=== PATIENT | male | born 1950 | race Caucasian/White ===

== ENCOUNTER 2020-02-09 13:23 | Emergency (ER) | payer MEDICARE, SELFPAY ==
--- NOTE | ~2020-02-09 | CT_ITS ---
EXAMINATION: CT brain wo con DATE: 02/09/2020 14:16 INDICATION: Fall. Possible loss of consciousness. Patient is on blood thinners. TECHNIQUE: Computed tomography (CT) of the head was performed without intravenous contrast. The mA wa s adjusted according to patient size. Iterative reconstruction technique was employed. Exam dose: 68 1.00 mGy-cm total exam DLP. COMPARISON: None FINDINGS: Right frontal soft tissue cephalohematoma without underlying skull fracture. No coup or con trecoup injury is evident. No subdural or epidural hematoma. No intracranial mass lesion or hemorrhage or cerebrovascular accident is evident. No midline shift or mass effect. Normal ventricular size. No skull fracture or bone destruction. The paranasal sinuses and mastoid air cells are unremarkable. IMPRESSION: Right frontal soft tissue cephalohematoma, without underlying skull fracture or acute in tracranial abnormality Reviewed, dictated and finalized at [facility]. Reviewed, dictated and finalized at location [facility]. IMPRESSION: Right frontal soft tissue cephalohematoma, without underlying skul l fracture or acute intracranial abnormality
--- NOTE | ~2020-02-09 | CT_ITS ---
EXAMINATION: CT cervical spine wo con DATE: 02/09/2020 14:16 INDICATION: Fall. Possible loss of consciousness. Patient on blood thinners. TECHNIQUE: Computed tomography (CT) of the cervical spine was performed without intravenous contrast. Automated exposure control and iterative reconstruction technique were employed. Exam dose: 467.67 mGy-cm total exam DLP. COMPARISON: None FINDINGS: There is straightening of the cervical spine. C1 and C2 are normally aligned and the odontoid process is intact. No fracture or dislocation or lock ed facet. No prevertebral soft tissue swelling. Diffuse idiopathic skeletal hyperostosis with bridging osteophytes along the entire cervical spine. There is degenerative disease in the mid and lower cervical spine, including C4-5 through C6-7, as we ll as posterior spurring. There is degenerative change at the apophyseal joints, especially on the right C2-3 and on the left a t C6-7. There is uncovertebral joint spurring particular at C5-6 and C6-7. 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 Reviewed, dictated and finalized at [facility]. 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
[2020-02-09 13:29] VITALS: BP 145/83; PULSE 69; RESP 18; TEMP 36.8; O2SAT 98
[2020-02-09 13:52] VITALS: BP 145/83; PULSE 69; RESP 18; TEMP 36.8; O2SAT 98
--- NOTE | 2020-02-09 14:06 | ED.HEATRA ---
HPI - Head Injury General Chief complaint: Head Injury Stated complaint: head injury Time Seen by Provider: 02/09/20 14:06 Source: patient Mode of arrival: ambulatory Limitations: no limitations History of Present Illness HPI Narrative: Pt presented for evaluation of head injury following a ground level fall. Patient was holding 2 drinks walking on a deck when he tripped over some cords on the deck. Patient fell and hit his head on a bench. Patient did have a positive loss of consciousness per the daughter who witnessed the event. EMS was called but patient was able to ambulate to the car and requested to be transported via private vehicle. Patient's daughter states he has been somewhat confused and nauseated since the fall. He is anticoagulated on warfarin for recurrent DVT. Last INR was 2.0 called to them today. Related Data Home Medications Medication Instructions Recorded Confirmed cyanocobalamin (vitamin B-12) mcg 02/09/20 [Vitamin B-12] felodipine mg PO 02/09/20 ferrous sulfate [FerrouSul] 325 mg PO BID 02/09/20 losartan 02/09/20 multivit with min-folic acid mg PO 02/09/20 [Adult One Daily Multivitamin] simvastatin mg 02/09/20 terazosin mg 02/09/20 vit A,C and [id number]-[id number] 1 tablet PO BID 02/09/20 [Ocuvite with Lutein] warfarin 02/09/20 warfarin 02/09/20 Allergies Allergy/AdvReac Type Severity Reaction Status Date / Time Penicillins Allergy Hives Verified 02/09/20 13:48 Review of Systems Review of Systems: Narrative: CONSTITUTIONAL: Denies fever CARDIOVASCULAR: Denies chest pain RESPIRATORY: Denies cough or dyspnea. GASTROINTESTINAL: Denies abdominal pain SKIN: Denies rash MUSCULOSKELETAL: Denies back pain NEUROLOGIC: Reports headache PMFSH Past Medical History Medical History (Updated 02/09/20 @ 15:58 by Yolanda Barnes MD) Chronic kidney disease Hypertension Recurrent deep vein thrombosis (DVT) Social History Social History (Updated 02/09/20 @ 14:25 by Yolanda Barnes MD) Alcohol intake: never Substance use: never Living arrangements: with family Gender identity (if verbalized by the patient): Male Exam Narrative: Exam Narrative: Nursing note and vitals reviewed. CONSTITUTIONAL: The patient appears well-developed and well-nourished. No distress. HEAD: Normocephalic, + hematoma, ecchymoses present EYES: PERRL, EOMI, normal conjunctiva, anicteric EARS: External ears clear bilaterally, no hemotympanum MOUTH: OP clear, no erythema, exudates NECK: midline trachea, supple, FROM. Negative Cervical spinal tenderness. CARDIOVASCULAR: Normal rate, regular rhythm, normal heart sounds and intact distal pulses. No murmurs, rubs, gallops. PULMONARY: Effort normal and breath sounds normal. No respiratory distress. The patient has no wheezes, rales, ronchi. No chest wall tenderness, crepitus or ecchymoses. ABDOMINAL: Soft. Nontender, nondistended. No palpable masses EXTREMITIES:: moving all extremities symmetrically. -RUE: No deformity. Normal ROM at shoulder, elbow, wrist, and hand. Sensation intact M/U/R. Pulse 2+. -LUE: No deformity. Normal ROM at shoulder, elbow, wrist, and hand., Sensation intact M/U/R. Pulse 2+ -RLE: No deformity. Normal ROM at hip, knee, ankle. Sensation intact distally. -LLE: No deformity. Normal ROM at hip, knee, ankle. Sensation intact distally. NEUROLOGY: The patient is alert and oriented to person, place, and time. CN II-XII Course Vital Signs Vital signs: Vital Signs Temperature 36.8 C 02/09/20 13:29 Pulse Rate 69 02/09/20 13:29 Respiratory Rate 18 02/09/20 13:29 Blood Pressure 145/83 H 02/09/20 13:29 Pulse Oximetry 98 02/09/20 13:29 Temperature 36.8 C 02/09/20 13:52 Pulse Rate 54 L 02/09/20 15:24 Respiratory Rate 17 02/09/20 15:24 Blood Pressure 140/61 02/09/20 15:24 Pulse Oximetry 98 02/09/20 15:24 MDM - Head Injury MDM Narrative Medical decision making narrative: Patient presenting fo
--- NOTE | 2020-02-09 14:11 | PC.NURSE ---
pt to ct via stretcher at this time.
[2020-02-09] MEDS: SODIUM CHLORIDE 0.9% IV 500 ML 999 ML IV CONT (14:37)
[2020-02-09] MEDS: ONDANSETRON INJ 4 MG/2 ML VIAL IV PUSH (14:37)
[2020-02-09 14:38] VITALS: BP 125/65; PULSE 65; RESP 11; O2SAT 98
[2020-02-09 14:43] LABS: Basophils Percent Auto 0.4 % (0.2-1.2); Eosinophils Absolute Auto 0.1 K/mm3 (0-0.3); Eosinophils Percent Auto 1.7 % (0-4.4); Hematocrit 34.5 % (42.0-52.0); Hemoglobin 11.3 g/dL (14.0-18.0); Immature Granulocyte Absolute 0.01 K/mm3 (0.00-0.031); Immature Granulocyte Percent A 0.2 % (0-0.5); Lymphocytes Absolute Auto 1.73 K/mm3 (0.9-3.2); Lymphocytes Percent Auto 32.1 % (18.3-44.2); Mean Corpuscular HGB Conc 32.8 g/dl (32-36); Mean Corpuscular Hemoglobin 30.5 pg (26-34); Mean Corpuscular Volume 93.2 fl (80-100); Mean Platelet Volume 10.5 fl (7.4-10.4); Monocytes Absolute Auto 0.3 K/mm3 (0.1-0.6); Monocytes Percent Auto 6.3 % (2.6-8.5); Neutrophils Absolute Auto 3.2 K/mm3 (1.3-6.7); Neutrophils Percent Auto 59.3 % (45.5-73.1); Platelet Count Result 179 k/mm3 (150-375); Red Cell Distribution Width 13.5 % (11.5-14.5); White Blood Count 5.4 K/mm3 (4.5-10.0)
[2020-02-09 14:54] LABS: Partial Thromboplastin Time 33.5 SECONDS (22.3-36.8); Prothrombin Time 22.5 Seconds (11.1-14.7)
[2020-02-09 14:55] LABS: Anion Gap 8 mmol/L (8-16); Blood Urea Nitrogen 36 mg/dL (9-20); Calcium 7.5 mg/dL (8.4-10.2); Carbon Dioxide 16 mmol/L (22-30); Chloride 114 mmol/L (98-107); Estimated CRCL calculation 28 ml/min; Estimated Glomerular Filt Rate 21; Glucose 173 mg/dL (75-110); Potassium 3.9 mmol/L (3.4-5.0); Sodium 138 mmol/L (137-145)
[2020-02-09 15:24] VITALS: BP 140/61; PULSE 54; RESP 17; O2SAT 98
[2020-02-09 16:17] VITALS: BP 142/94; PULSE 54; RESP 21; TEMP 36.9; O2SAT 98
== END 2020-02-09 16:19 | disposition home or self-care (01) ==
PROVIDERS: Emergency Provider Emergency Medicine
DX: F07.81 Postconcussional syndrome (principal); Z86.718 Personal history of other venous thrombosis and embolism; Z79.01 Long term (current) use of anticoagulants; I12.9 Hypertensive chronic kidney disease with stage 1 through stage 4 chronic kidney disease, or unspecified chronic kidney disease; N18.9 Chronic kidney disease, unspecified
CPT/HCPCS: 36415; 70450; 72125; 80048; 85025; 85610; 85730; 96365; 96375; 99284; J0131; J2405; J7040

== ENCOUNTER → 2020-07-20 09:37 | Outpatient (CLI) | payer MEDICARE, SELFPAY ==
--- NOTE | ~2020-07-20 | XR_ITS ---
EXAMINATION: XR shoulder RT min 2V DATE: 07/20/2020 09:57 INDICATION: Right shoulder pain. TECHNIQUE: 4 views of right shoulder were obtained. COMPARISON: Cervical spine CT 02/09/2020 FINDINGS: Bone alignment is normal. There is an old healed fracture of right clavicle. There is moder ate osteoarthritis of the acromioclavicular joint and mild osteoarthritis of glenohumeral joint. IMPRESSION: 1. Polyarticular osteoarthritis. Reviewed, dictated and finalized at location [facility]. PLACEMENT COUNSELOR
== END ==
DX: M19.011 Primary osteoarthritis, right shoulder (principal)
CPT/HCPCS: 73030

== ENCOUNTER 2021-01-22 15:44 | Emergency (ER) | payer MEDICARE, SELFPAY ==
--- NOTE | ~2021-01-22 | XR_ITS ---
EXAMINATION: XR chest 2V EXAM DATE: 01/22/2021 16:00 INDICATION: Fever and cough onset this a.m.; RLE redness/swelling hx of DVT. TECHNIQUE: Frontal and lateral projections of the chest obtained and reviewed. There is no prior mike dy for comparison. FINDINGS: The lungs are clear. There are no pleural effusions. The cardiomediastinal silhouette i s within normal limits. There is no pneumothorax suspected. The bones and soft tissues are unremark able. There are cholecystectomy clips. IMPRESSION: No acute cardiopulmonary findings. Reviewed, dictated and finalized at location [facility].
[2021-01-22 15:46] VITALS: BP 157/112; PULSE 82; RESP 20; TEMP 38; O2SAT 98
[2021-01-22 15:59] LABS: Basophils Percent Auto 0.2 % (0.2-1.2); Eosinophils Absolute Auto 0.1 K/mm3 (0-0.3); Eosinophils Percent Auto 1.3 % (0-4.4); Hematocrit 32.9 % (42.0-52.0); Hemoglobin 10.3 g/dL (14.0-18.0); Immature Granulocyte Absolute 0.01 K/mm3 (0.00-0.031); Immature Granulocyte Percent A 0.2 % (0-0.5); Lymphocytes Absolute Auto 0.57 K/mm3 (0.9-3.2); Lymphocytes Percent Auto 12.7 % (18.3-44.2); Mean Corpuscular HGB Conc 31.3 g/dl (32-36); Mean Corpuscular Hemoglobin 29.9 pg (26-34); Mean Corpuscular Volume 95.6 fl (80-100); Mean Platelet Volume 9.9 fl (7.4-10.4); Monocytes Absolute Auto 0.3 K/mm3 (0.1-0.6); Monocytes Percent Auto 7.4 % (2.6-8.5); Neutrophils Absolute Auto 3.5 K/mm3 (1.3-6.7); Neutrophils Percent Auto 78.2 % (45.5-73.1); Platelet Count Result 164 k/mm3 (150-375); Red Blood Count 3.44 M/mm3 (4.6-6.20); Red Cell Distribution Width 13.1 % (11.5-14.5); White Blood Count 4.5 K/mm3 (4.5-10.0)
[2021-01-22 16:10] LABS: INR 2.1; Lactic Acid Reflex 0.7 mmol/L (0.7-2.1); Prothrombin Time 22.8 Seconds (11.1-14.7)
[2021-01-22 16:11] LABS: Partial Thromboplastin Time 35.6 SECONDS (22.3-36.8)
[2021-01-22 16:14] LABS: Alanine Aminotransferase 16 U/L (4-50); Albumin Level 3.5 g/dL (3.5-5.1); Alkaline Phosphatase 80 U/L (38-126); Anion Gap 8 mmol/L (8-16); Aspartate Amino Transferase 21 U/L (17-59); Bilirubin,Total 0.5 mg/dL (0.2-1.3); Blood Urea Nitrogen 32 mg/dL (9-20); CRP 1.1 mg/dL (<1.0); Calcium 7.2 mg/dL (8.4-10.2); Carbon Dioxide 17 mmol/L (22-30); Chloride 114 mmol/L (98-107); Estimated CRCL calculation 28 ml/min; Estimated Glomerular Filt Rate 21; Glucose 83 mg/dL (65-110); Potassium 4.3 mmol/L (3.4-5.0); Sodium 139 mmol/L (137-145)
[2021-01-22 16:50] LABS: Add Urine Microscopic? YES; Appearance Urine Clear (Clear); Bilirubin Urine Negative (Negative); Blood Urine Negative (Negative); Color Urine Yellow (Yellow); Glucose Urine UA Negative (Negative); Ketones Urine Negative (Negative); Leukocyte Esterase Ur Negative LEU/UL (Negative); Mucus Urine Rare /lpf; Nitrate Urine Negative (Negative); Protein Urine 2+ mg/dL (Negative); RBC Urine 0-2 /hpf (0-2); Specific Grav Ur 1.011 (1.001-1.035); Urobilinogen Urine Negative mg/dL (<2.0); WBC Urine 0-3 /hpf
[2021-01-22 18:15] VITALS: BP 154/100; PULSE 82; RESP 16; TEMP 37.8; O2SAT 97
--- NOTE | 2021-01-22 19:02 | WPDEDEXPGENP ---
HPI - General Ped General Chief complaint: Fever Stated complaint: FEVER, COUGH Time Seen by Provider: 01/22/21 18:52 Source: patient and RN notes reviewed Mode of arrival: ambulatory Limitations: no limitations History of Present Illness HPI narrative: Patient is 70 years old white male presented to the ED with fever 1 or 2.1 started incident coordinator. Patient been feeling hot and cold, patient noticed slight redness at the front of right lower extremity few days ago, getting warm and slightly tender today. Patient been fully vaccinated for COVID-19. Patient denies any headache, nausea, vomiting, diarrhea, urinary symptoms. Patient reports some productive cough of clear phlegm started yesterday. History of diabetes, hypertension, hyperlipidemiA, deep vein thrombosis on Coumadin. patient does not smoke or drink or uses drugs. Related Data Home Medications Medication Instructions Recorded Confirmed cyanocobalamin (vitamin B-12) mcg 02/09/20 [Vitamin B-12] felodipine mg PO 02/09/20 ferrous sulfate [FerrouSul] 325 mg PO BID 02/09/20 losartan 02/09/20 multivit with min-folic acid mg PO 02/09/20 [Adult One Daily Multivitamin] simvastatin mg 02/09/20 terazosin mg 02/09/20 vit A,C and B-qpijbk-quwqznmn 1 tablet PO BID 02/09/20 [Ocuvite with Lutein] warfarin 02/09/20 warfarin 02/09/20 Allergies Allergy/AdvReac Type Severity Reaction Status Date / Time Penicillins Allergy Hives Verified 01/22/21 15:51 Pediatric Review of Systems Review of Systems: CONSTITUTIONAL: Denies fever, chills, or sweats. EYES: Denies visual changes, redness, or discharge. ENT: Denies rhinorrhea, congestion, sore throat, or otalgia. CARDIOVASCULAR: Denies chest pain, palpitations, or edema. RESPIRATORY: Denies cough or dyspnea. GASTROINTESTINAL: Denies abdominal pain, nausea, vomiting, or diarrhea. GENITOURINARY: Denies dysuria or hematuria. SKIN: Right lower extremity rash MUSCULOSKELETAL: Denies back pain, joint pain, or myalgia. NEUROLOGIC: Denies headache, numbness, or weakness. PSYCHIATRIC: Denies anxiety or depression. COUNTS INCLUDE 234 BEDS AT THE [facility] Past Medical History Medical History Chronic kidney disease Hypertension Recurrent deep vein thrombosis (DVT) Social History Social History Alcohol intake: never Substance use: never Gender identity (if verbalized by the patient): Male Pediatric Exam Narrative: Physical exam: General appearance: Well-developed, well-nourished Skin: Normal color, right lower leg showed slight erythematous changes 6 x 8 cm anteriorly, warm to touch, tender with palpation, no open wound, no discharge Head: Normocephalic, nontraumatic Eyes: Clear conjunctiva ENT: Oropharynx normal, ears normal, nose normal Neck: Supple, nontender Chest and respiratory: Airway patent, no respiratory distress, no accessory muscle use Heart: Regular rate/rhythm Abdomen: Soft, nontender, no organomegaly, quiet bowel sounds Vascular: Normal peripheral pulses, normal capillary refill. 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
[2021-01-22] MEDS: ACETAMINOPHEN 500 MG TABLET 1000 MG PO (19:06)
[2021-01-22] MEDS: SODIUM CHLORIDE 0.9% IV 1,000 ML 999 ML IV CONT (19:06)
--- NOTE | 2021-01-22 19:12 | PC.NURSE ---
Assumed care of pt at this time.
[2021-01-22 19:23] VITALS: BP 177/59; PULSE 80; RESP 22; O2SAT 100
--- NOTE | 2021-01-22 19:56 | PC.NURSE ---
called Pharmacy about vanc. They state they will get it ready and tube it up.
[2021-01-22 20:07] VITALS: BP 165/78; PULSE 82; RESP 18; O2SAT 100
[2021-01-22 23:50] VITALS: BP 143/74; PULSE 63; O2SAT 94
[2021-01-22 23:52] VITALS: BP 143/74
[2021-01-23 02:00] VITALS: BP 145/79; PULSE 78; RESP 18; O2SAT 100
[2021-01-23 03:34] VITALS: BP 144/77; PULSE 77; RESP 17; O2SAT 98
[2021-01-23 04:37] VITALS: TEMP 37.3
== END 2021-01-23 04:40 | disposition home or self-care (01) ==
PROVIDERS: Emergency Provider Emergency Medicine
DX: B34.9 Viral infection, unspecified (principal); L03.115 Cellulitis of right lower limb; E78.5 Hyperlipidemia, unspecified; I12.9 Hypertensive chronic kidney disease with stage 1 through stage 4 chronic kidney disease, or unspecified chronic kidney disease; N18.9 Chronic kidney disease, unspecified; E11.22 Type 2 diabetes mellitus with diabetic chronic kidney disease; Z86.718 Personal history of other venous thrombosis and embolism; Z79.01 Long term (current) use of anticoagulants
CPT/HCPCS: 36415; 71046; 80053; 81001; 83605; 85025; 85610; 85730; 86140; 87804; 96361; 96365; 96366; 99284; A9270; J3370; J7030

== ENCOUNTER 2021-02-04 15:55 | Inpatient (IN) | payer MEDICARE, SELFPAY ==
[2021-02-04] VITALS (34 sets, daily range): BP systolic 101–154; BP diastolic 59–78; PULSE 59–84; RESP 12–25; TEMP 36.3; O2SAT 92–100
--- NOTE | ~2021-02-04 | XR_ITS ---
EXAMINATION: XR chest 1V portable DATE: 02/04/2021 18:53 INDICATION: Dyspnea. COVID-19 pneumonia. TECHNIQUE: A single frontal view of the chest was obtained. COMPARISON: Chest 2 views 01/22/21 FINDINGS: There are patchy airspace opacities in the mid and lower lung zones. No pleural effusion or pneumothorax. The heart size is normal. There are old healed fractures of the clavicles. IMPRESSION: 1. Worsened patchy airspace opacities in the mid and lower lung zones, consistent with COVID-19 pneum onia. Reviewed, dictated and finalized at location [facility]. IMPRESSION: 1. Worsened patchy airspace opacities in the mid and lower lung zones, consiste nt with COVID-19 pneumonia.
[2021-02-04 18:09] LABS: Basophils Percent Auto 0.3 % (0.2-1.2); Eosinophils Absolute Auto 0.1 K/mm3 (0-0.3); Eosinophils Percent Auto 0.8 % (0-4.4); Hematocrit 42.7 % (42.0-52.0); Hemoglobin 13.2 g/dL (14.0-18.0); Immature Granulocyte Absolute 0.06 K/mm3 (0.00-0.031); Lymphocytes Absolute Auto 1.25 K/mm3 (0.9-3.2); Lymphocytes Percent Auto 20.6 % (18.3-44.2); Mean Corpuscular HGB Conc 30.9 g/dl (32-36); Mean Corpuscular Hemoglobin 29.6 pg (26-34); Mean Corpuscular Volume 95.7 fl (80-100); Mean Platelet Volume 10.8 fl (7.4-10.4); Monocytes Absolute Auto 0.6 K/mm3 (0.1-0.6); Monocytes Percent Auto 9.9 % (2.6-8.5); Neutrophils Absolute Auto 4.1 K/mm3 (1.3-6.7); Neutrophils Percent Auto 67.4 % (45.5-73.1); Platelet Count Result 279 k/mm3 (150-375); Red Blood Count 4.46 M/mm3 (4.6-6.20); Red Cell Distribution Width 13.1 % (11.5-14.5); White Blood Count 6.1 K/mm3 (4.5-10.0)
[2021-02-04 18:21] LABS: D Dimer 1.09 ug/mL (<0.48)
[2021-02-04 18:41] LABS: Alveolar/Arterial O2 Gradient 31.2 mmHg; Base Excess ABG -3.7 mEq/l (+/-2.0); Fractional Inspired Oxygen 21 %; HCO3 ABG 21.6 mEq/l (22.0-26.0); Oxygen Content ABG 16.5 %vol (16.0-22.0); Oxygen Saturation ABG 93.6 % (95.0-100.0); Oxyhemoglobin 91.4 % THb (90.0-100.0); PCO2 ABG 39.9 mmHg (35.0-45.0); PO2 ABG 70.8 mmHg (80.0-100.0); PO2 FiO2 Ratio Arterial Blood 3.37 %; Total Hemoglobin 12.8 g/dL (12.0-18.0); pH ABG 7.351 (7.350-7.450)
[2021-02-04 18:44] LABS: Device ROOM AIR; Site Drawn LEFT BRACHIAL
[2021-02-04 18:51] LABS: Alanine Aminotransferase 121 U/L (4-50); Albumin Level 3.9 g/dL (3.5-5.1); Alkaline Phosphatase 814 U/L (38-126); Anion Gap 7 mmol/L (8-16); Aspartate Amino Transferase 207 U/L (17-59); Bilirubin,Total 0.8 mg/dL (0.2-1.3); Blood Urea Nitrogen 55 mg/dL (9-20); Calcium 8.7 mg/dL (8.4-10.2); Carbon Dioxide 26 mmol/L (22-30); Chloride 109 mmol/L (98-107); Estimated CRCL calculation 17 ml/min; Estimated Glomerular Filt Rate 12; Glucose 148 mg/dL (65-110); Potassium 4.7 mmol/L (3.4-5.0); Sodium 142 mmol/L (137-145)
[2021-02-04 19:12] LABS: Thyroid Stimulating Hormone Reflex 0.542 uIU/mL (0.465-4.68)
[2021-02-04 20:29] LABS: Lactate Dehydrogenase 1023 U/L (313-618)
--- NOTE | 2021-02-04 20:52 | ED.GENADULT ---
HPI - General Adult General Chief complaint: Unspecified Stated complaint: I CANT BREATH Time Seen by Provider: 02/04/21 18:00 Source: patient Mode of arrival: ambulatory Limitations: no limitations History of Present Illness HPI narrative: 70-year-old male History of chronic kidney disease Has been Covid vaccinated Nonetheless after being ill for several days he did test positive for Covid infection 8 days ago; actually had a visit to the ED for seemingly unrelated issues for 5 days before that His is currently hospitalized with Covid complications He comes in tonight because he is weak all over, no appetite, nauseated, achy, no energy, nauseated, occasional diarrhea, and gets breathless and fatigue very quickly with modest exertion Related Data Home Medications Medication Instructions Recorded Confirmed cyanocobalamin (vitamin B-12) mcg 02/09/20 [Vitamin B-12] felodipine mg PO 02/09/20 ferrous sulfate [FerrouSul] 325 mg PO BID 02/09/20 losartan 02/09/20 multivit with min-folic acid mg PO 02/09/20 [Adult One Daily Multivitamin] simvastatin mg 02/09/20 terazosin mg 02/09/20 vit A,C and I-xaitrj-nhqgbtjy 1 tablet PO BID 02/09/20 [Ocuvite with Lutein] warfarin 02/09/20 warfarin 02/09/20 Allergies Allergy/AdvReac Type Severity Reaction Status Date / Time Penicillins Allergy Hives Verified 02/04/21 17:48 Review of Systems Review of Systems: All systems reviewed & are unremarkable except as noted in HPI and below Constitutional: Constitutional: Reports no additional constitutional complaints, Reports anorexia, Reports body ache(s), Reports chills, Reports difficulty sleeping, Reports fatigue, Reports fever(s), Reports poor appetite and Reports weakness Eyes: Eyes: Reports no additional eye complaints and Denies change in vision ENT: Denies headache(s) and Denies sore throat Cardiovascular: Cardiovascular: Denies chest pain and Reports dyspnea Respiratory: Respiratory: Reports cough and Reports dyspnea Gastrointestinal: Gastrointestinal: Denies abdominal pain, Reports diarrhea and Reports nausea Genitourinary: Genitourinary: Denies dysuria and Denies urinary frequency Musculoskeletal: Musculoskeletal: Reports myalgias, Denies deformity, Reports arthralgias, Denies joint swelling and Denies numbness Integumentary/Breasts: Skin/Breast: Denies rash and Denies wounds Neurologic: Denies headache(s), Denies focal weakness and Denies numbness Psychiatric: Psychiatric: Reports no additional psychiatric complaints Endocrine: Endocrine: Reports no additional endocrine complaints Hematologic/Lymphatic: Hematologic/Lymphatic: Reports no additional hematologic/lymphatic complaints Allergic/Immunologic: Allergic/Immunologic: Reports no additional allergic/immunologic complaints [facility] Past Medical History Medical History Chronic kidney disease Hypertension Recurrent deep vein thrombosis (DVT) Social History Social History Alcohol intake: never Substance use: never Gender identity (if verbalized by the patient): Male Exam Const: General: cooperative and no acute distress Orientation/consciousness: patient oriented x3 (alert) HENMT: Head: normal to inspection, normocephalic and atraumatic Ears: external ears normal General nose exam: no epistaxis Mouth: Yes moist mucous membranes Eyes: Conjunctivae: conjunctivae normal EOM: EOMs intact bilaterally Neck: Neck: normal visual inspection, supple and no JVD Resp: Effort & Inspection: normal respiratory effort and not labored Auscultation: clear to auscultation bilaterally, no rales, no rhonchi, no wheezes and other (BS =) Cardio: Rate: regular rate Rhythm: regular rhythm Heart sounds: no murmurs GI: GI Palp: Yes Soft to palpation and No Tenderness to palpation present (GI) Skin: General skin exam: normal col
[2021-02-04] MEDS: ONDANSETRON INJ 4 MG/2 ML VIAL IV PUSH (20:53)
[2021-02-04] MEDS: LACTATED RINGERS 1,000 ML 999 ML IV CONT (20:53)
[2021-02-04] MEDS: ALBUTEROL SULFATE (*SP) AEROSOL 1 PUFF 4 PUFF INHALATION (21:04)
[2021-02-05] VITALS (16 sets, daily range): BP systolic 130–158; BP diastolic 59–79; PULSE 64–90; RESP 11–20; TEMP 36.2–37; O2SAT 90–98; BMI 37.3
--- NOTE | 2021-02-05 01:10 | PM.IMHP ---
H&P: HPI History of Present Illness Date/Time: 02/05/21 01:10 Chief Complaint: Shortness of breath Narrative: This is a 70-year-old male with past medical history significant for dyslipidemia, chronic kidney disease, recurrent DVT on anticoagulation, congestive heart failure, dyslipidemia, atrial fibrillation anticoagulated and rate controlled. Patient presented to the emergency room due to generalized weakness malaise shortness of breath he tested positive for COVID about a week ago. He has been having nausea vomiting and diarrhea feels very weak as well. He denies any fevers chills or rigors. Preliminary workup was significant for chest x-ray with infiltrates BMP with elevated creatinine 4.7 elevated liver enzymes at AST 207 ALT 121 alk phos 800 LDH of 1023. Review of Systems Review of Systems: General malaise weakness nausea vomiting diarrhea Constitutional: Constitutional: Denies chills, Denies fever(s), Reports lethargy, Reports malaise and Reports weakness Eyes: Eyes: Denies change in vision ENT: Denies dysphagia, Denies nasal congestion, Denies nasal discharge, Denies nasal obstruction and Denies odynophagia Cardiovascular: Cardiovascular: Denies irregular heart rhythm, Denies radiating jaw, neck or arm pain and Denies palpitations Respiratory: Respiratory: Reports dyspnea Gastrointestinal: Gastrointestinal: Reports diarrhea, Reports nausea and Reports vomiting Genitourinary: Genitourinary: Reports no additional male genitourinary complaints Musculoskeletal: Musculoskeletal: Reports myalgias and Reports muscle weakness Integumentary/Breasts: Skin/Breast: Reports system reviewed and no additional complaints, except as docu Neurologic: Reports system reviewed and no additional complaints, except as documented Psychiatric: Psychiatric: Reports no additional psychiatric complaints Endocrine: Endocrine: Reports no additional endocrine complaints Hematologic/Lymphatic: Hematologic/Lymphatic: Reports no additional hematologic/lymphatic complaints Allergic/Immunologic: Allergic/Immunologic: Reports no additional allergic/immunologic complaints [facility] Past Medical History Medical History (Updated 02/05/21 @ 01:28 by Deepak Tirado MD) Chronic kidney disease Hypertension Recurrent deep vein thrombosis (DVT) Social History Social History Alcohol intake: never Substance use: never Gender identity (if verbalized by the patient): Male Meds Home Medications and Allergies Home Medications Medication Instructions Recorded Confirmed Type cyanocobalamin (vitamin B-12) mcg 02/09/20 History [Vitamin B-12] felodipine mg PO 02/09/20 History ferrous sulfate [FerrouSul] 325 mg PO BID 02/09/20 History losartan 02/09/20 History multivit with min-folic acid mg PO 02/09/20 History [Adult One Daily Multivitamin] simvastatin mg 02/09/20 History terazosin mg 02/09/20 History vit A,C and P-aratrs-lysvfgrd 1 tablet PO BID 02/09/20 History [Ocuvite with Lutein] warfarin 02/09/20 History warfarin 02/09/20 History Allergies Allergy/AdvReac Type Severity Reaction Status Date / Time Penicillins Allergy Hives Verified 02/04/21 17:48 Vital Signs Vital Signs - 24 hr 02/04/21 15:56 02/04/21 18:19 02/04/21 18:30 Temperature 97.3 F L Pulse Rate 84 62 61 Respiratory Rate 17 14 16 Blood Pressure 101/70 Pulse Oximetry 95 02/04/21 18:49 02/04/21 19:12 02/04/21 20:28 Temperature Pulse Rate 68 63 59 L Respiratory Rate 16 14 15 Blood Pressure 131/66 Pulse Oximetry 95 96 93 02/04/21 20:51 02/04/21 21:00 02/04/21 21:02 Temperature Pulse Rate 59 L 62 62 Respiratory Rate 12 14 12 Blood Pressure 150/64 H Pulse Oximetry 92 92 94 02/04/21 21:03 02/04/21 21:15 02/04/21 21:16 Temperature Pulse Rate 61 66 63 Respiratory Rate 13 15 13 Blood Pressure 136/59 L 140/63 Pulse Oximetry 92 02/04/21 21:30 08
--- NOTE | 2021-02-05 01:17 | ADMGEN ---
This patient, David Mcfarland, was admitted to [facility] Room [facility]01. Patient/family oriented to hospital policies and general routines including ID bracelet, bed and alarms, visiting hours, pain management, procedures, bathroom and other care routines, personal items, smoking policy, room service/diet, and visiting hours. Information on how to activate the Rapid Response Team has been discussed. Patient/Family are encouraged to report perceived risks to care and to ask questions if they do not understand what they are told or what they should do.
[2021-02-05] MEDS: LACTATED RINGERS 1,000 ML 125 ML IV CONT (04:29)
[2021-02-05 08:01] LABS: Anion Gap 8 mmol/L (8-16); Blood Urea Nitrogen 51 mg/dL (9-20); Calcium 7.8 mg/dL (8.4-10.2); Carbon Dioxide 24 mmol/L (22-30); Chloride 107 mmol/L (98-107); Estimated CRCL calculation 20 ml/min; Estimated Glomerular Filt Rate 14; Glucose 115 mg/dL (65-110); Potassium 4.2 mmol/L (3.4-5.0); Sodium 139 mmol/L (137-145)
[2021-02-05 08:33] LABS: Glucose Point of Care 109 mg/dl (65-105)
[2021-02-05 08:42] LABS: Prothrombin Time 62.6 Seconds (11.1-14.7)
[2021-02-05] MEDS: ALBUTEROL SULFATE (*SP) AEROSOL 1 PUFF 4 PUFF INHALATION ×4 (08:45→20:14)
[2021-02-05 08:47] LABS: INR 7.8
[2021-02-05] MEDS: calcitrioL 0.25 MCG CAPSULE PO (09:06)
[2021-02-05] MEDS: CYANOCOBALAMIN 1,000 MCG TABLET 1000 MCG PO (09:06)
[2021-02-05] MEDS: guaiFENesin 12 HR 600 MG TABCR PO ×2 (09:06→21:03)
[2021-02-05] MEDS: ASPIRIN 81 MG CHEWABLE TABLET PO (09:06)
[2021-02-05] MEDS: THERAPEUTIC MULTIVITAMINS/MINERALS TAB (*BKC) 1 TABLET PO (09:07)
[2021-02-05] MEDS: FAMOTIDINE 20 MG/2 ML VIAL IV PUSH ×2 (09:07→21:03)
[2021-02-05 12:01] LABS: Alanine Aminotransferase 74 U/L (4-50); Albumin Level 3.1 g/dL (3.5-5.1); Alkaline Phosphatase 539 U/L (38-126); Anion Gap 5 mmol/L (8-16); Aspartate Amino Transferase 90 U/L (17-59); Bilirubin,Total 0.4 mg/dL (0.2-1.3); Blood Urea Nitrogen 50 mg/dL (9-20); Calcium 7.8 mg/dL (8.4-10.2); Carbon Dioxide 25 mmol/L (22-30); Chloride 107 mmol/L (98-107); Estimated CRCL calculation 21 ml/min; Estimated Glomerular Filt Rate 16; Glucose 126 mg/dL (65-110); Potassium 4.4 mmol/L (3.4-5.0); Sodium 137 mmol/L (137-145)
[2021-02-05 12:37] LABS: Glucose Point of Care 139 mg/dl (65-105)
--- NOTE | 2021-02-05 14:21 | PM.IMPN ---
Progress Note: A&P Assessment and Plan (1) Pneumonia due to COVID-19 virus: Code(s): U07.1 - COVID-19; J12.82 - Pneumonia due to coronavirus disease 2018 Status: Acute Assessment and Plan: Patient tested positive on 01/27/21. CXR showed patchy airspace opacities in the mid and lower lung zones, consistent with COVID pneumonia. No need for dexamethasone as he is not requiring supplemental O2. Not a candidate for remdesivir given his kidney disease Maintaining adequate oxygenation on room air. Supplemental O2 as needed with goal saturation 90% or above Supportive care to include bronchodilators, expectorants, antipyretics, incentive spirometry Trend acute phase reactants Received Jonathan&Jonathan vaccine in September. (2) Acute on chronic kidney failure: Code(s): N17.9 - Acute kidney failure, unspecified; N18.9 - Chronic kidney disease, unspecified Status: Acute Assessment and Plan: Baseline creatinine is 3.0. Creatinine elevated at 4.7 upon presentation Suspect prerenal given nausea, vomiting, diarrhea, and poor p.o. intake. Creatinine improving with IV fluids. 3.8 today Continue IV fluids and encourage p.o. intake Monitor renal function closely. Daily BMP. Monitor intake and output. Continue with Ware catheter for accurate I&O. Consider renal ultrasound if no further improvement (3) Hypertension: Code(s): I10 - Essential (primary) hypertension Status: Acute Assessment and Plan: Blood pressure reviewed and has been well controlled. Last BP 130/59. Losartan on hold given MARISOL Monitor BP trends and adjust medications as needed (4) Supratherapeutic INR: Code(s): R79.1 - Abnormal coagulation profile Status: Acute Assessment and Plan: INR is 7.8 today. Last tested 01/22/2021 and was within normal limits. Etiology for this is unclear. May be related to acute illness and he had been on levaquin at home per PCP. Reports compliance with his warfarin with no extra doses taken. Hold warfarin No need for acute reversal at this point as no evidence of bleeding. Monitor INR daily (5) Type 2 diabetes mellitus: Code(s): E11.9 - Type 2 diabetes mellitus without complications Status: Inactive Assessment and Plan: Blood sugars reviewed and generally well controlled. He is not on medications. Diet controlled. Check A1c Accu-Cheks, sliding scale insulin, hypoglycemic protocol (6) Recurrent deep vein thrombosis (DVT): Code(s): I82.409 - Acute embolism and thrombosis of unspecified deep veins of unspecified lower extremity Status: Acute Assessment and Plan: Maintained on warfarin. See above. Subjective Date/time seen: 02/05/21 14:21 Interval history: Date of service: 02/05/2021 David Mcfarland is a 70-year-old male with history of CKD, hypertension, type 2 diabetes mellitus, and recurrent DVT on chronic anticoagulation who is seen in follow-up for COVID 19 pneumonia. He is feeling about the same today. Overall he feels weak and run down. He reports he has not been up and out of bed today. He has really not been getting around much ever since he started feeling ill with COVID over 1 week ago. He denies significant shortness of breath. Unable to indicate dyspnea on exertion as he has not been active. He has occasional dry cough. No sputum production denies nausea, vomiting, fever, chills, or abdominal pain. No diarrhea. Last bowel movement was 1 day ago. No melena or hematochezia. Denies urinary symptoms and has no issues with his Ware catheter. He endorses dysgeusia but has still been eating as he knows he needs the nutrients. He admits he has not been drinking much water. Denies lower extremity edema. Denies dizziness or lightheadedness. Denies bleeding. He complains of dry itchy skin. No additional concerns. Review of Systems Review of Systems: All systems reviewe
[2021-02-05 19:01] LABS: Glucose Point of Care 142 mg/dl (65-105)
[2021-02-05] MEDS: TERAZOSIN HCL 5 MG CAPSULE PO (21:04)
[2021-02-05] MEDS: LACTATED RINGERS 1,000 ML 110 ML IV CONT (21:07)
[2021-02-05 22:06] LABS: Glucose Point of Care 169 mg/dl (65-105)
[2021-02-06 03:46] VITALS: BP 140/72; PULSE 64; RESP 20; TEMP 36.7; O2SAT 90
[2021-02-06] MEDS: LACTATED RINGERS 1,000 ML 110 ML IV CONT (06:44)
[2021-02-06 06:47] LABS: Hematocrit 32.1 % (42.0-52.0); Hemoglobin 10.2 g/dL (14.0-18.0); Mean Corpuscular HGB Conc 31.8 g/dl (32-36); Mean Corpuscular Hemoglobin 30.2 pg (26-34); Mean Platelet Volume 10.4 fl (7.4-10.4); Platelet Count Result 258 k/mm3 (150-375); Red Blood Count 3.38 M/mm3 (4.6-6.20); Red Cell Distribution Width 12.9 % (11.5-14.5); White Blood Count 5.9 K/mm3 (4.5-10.0)
[2021-02-06 06:57] LABS: Alanine Aminotransferase 56 U/L (4-50); Albumin Level 2.7 g/dL (3.5-5.1); Alkaline Phosphatase 412 U/L (38-126); Anion Gap 3 mmol/L (8-16); Aspartate Amino Transferase 56 U/L (17-59); Bilirubin,Total 0.5 mg/dL (0.2-1.3); Blood Urea Nitrogen 47 mg/dL (9-20); CRP 2.2 mg/dL (<1.0); Carbon Dioxide 25 mmol/L (22-30); Chloride 112 mmol/L (98-107); Estimated CRCL calculation 22 ml/min; Estimated Glomerular Filt Rate 17; Glucose 105 mg/dL (65-110); Potassium 4.4 mmol/L (3.4-5.0); Sodium 140 mmol/L (137-145)
[2021-02-06 06:59] LABS: Prothrombin Time 60.1 Seconds (11.1-14.7)
[2021-02-06 07:18] LABS: INR 7.4
[2021-02-06 08:00] VITALS: BP 145/58; PULSE 62; RESP 16; RESP 20; TEMP 36.4; O2SAT 93
[2021-02-06 08:28] LABS: Glucose Point of Care 103 mg/dl (65-105)
[2021-02-06] MEDS: CYANOCOBALAMIN 1,000 MCG TABLET 1000 MCG PO (08:48)
[2021-02-06] MEDS: THERAPEUTIC MULTIVITAMINS/MINERALS TAB (*BKC) 1 TABLET PO (08:48)
[2021-02-06] MEDS: ASPIRIN 81 MG CHEWABLE TABLET PO (08:48)
[2021-02-06] MEDS: FAMOTIDINE 20 MG/2 ML VIAL IV PUSH ×2 (08:48→20:47)
[2021-02-06] MEDS: guaiFENesin 12 HR 600 MG TABCR PO ×2 (08:48→20:47)
[2021-02-06] MEDS: calcitrioL 0.25 MCG CAPSULE PO (08:48)
[2021-02-06] MEDS: ALBUTEROL SULFATE (*SP) AEROSOL 1 PUFF 4 PUFF INHALATION ×4 (09:53→20:10)
[2021-02-06 12:00] VITALS: BP 135/52; PULSE 66; RESP 20; TEMP 36.1; O2SAT 97
[2021-02-06 12:45] LABS: Glucose Point of Care 145 mg/dl (65-105)
[2021-02-06 16:00] VITALS: BP 166/83; PULSE 119; RESP 20; TEMP 36.2; O2SAT 91
--- NOTE | 2021-02-06 16:00 | PM.IMPN ---
Progress Note: A&P Assessment and Plan (1) Pneumonia due to COVID-19 virus: Code(s): U07.1 - COVID-19; J12.82 - Pneumonia due to coronavirus disease 2019 Status: Acute Assessment and Plan: Patient tested positive on 01/27/21. CXR showed patchy airspace opacities in the mid and lower lung zones, consistent with COVID pneumonia. No need for dexamethasone as he is not requiring supplemental O2. Not a candidate for remdesivir given his kidney disease Maintaining adequate oxygenation on room air. Supplemental O2 as needed with goal saturation 90% or above Supportive care to include bronchodilators, expectorants, antipyretics, incentive spirometry Trend acute phase reactants Received Jonathan&Jonathan vaccine in September. (2) Acute on chronic kidney failure: Code(s): N17.9 - Acute kidney failure, unspecified; N18.9 - Chronic kidney disease, unspecified Status: Acute Assessment and Plan: Baseline creatinine is 3.0. Creatinine elevated at 4.7 upon presentation, likely prerenal in origin given nausea, vomiting, diarrhea, and poor p.o. intake. Renal function has improved with IV fluids down to 3.6 today. Will discontinue IV fluids to avoid volume overload. Patient is tolerating p.o. intake. Monitor renal function closely. Daily BMP. Monitor intake and output. Ware was initiated for accurate I&O. Will discontinue and proceed with voiding trial. Consider renal ultrasound if no further improvement (3) Hypertension: Code(s): I10 - Essential (primary) hypertension Status: Acute Assessment and Plan: Blood pressure reviewed and has been well controlled. Last BP 135/52 Losartan on hold given MARISOL Monitor BP trends and adjust medications as needed (4) Supratherapeutic INR: Code(s): R79.1 - Abnormal coagulation profile Status: Acute Assessment and Plan: INR 7.8 at admisison. Last tested 01/22/2021 and was within normal limits. He had been on levaquin at home per PCP which is the likely cause. Reports compliance with his warfarin with no extra doses taken. Hold warfarin No need for acute reversal at this point as no evidence of bleeding. Monitor INR daily (5) Type 2 diabetes mellitus: Code(s): E11.9 - Type 2 diabetes mellitus without complications Status: Inactive Assessment and Plan: Blood sugars reviewed and generally well controlled. He is not on medications. Diet controlled. Check A1c Accu-Cheks, sliding scale insulin, hypoglycemic protocol (6) Recurrent deep vein thrombosis (DVT): Code(s): I82.409 - Acute embolism and thrombosis of unspecified deep veins of unspecified lower extremity Status: Acute Assessment and Plan: Maintained on warfarin. See above. Subjective Date/time seen: 02/06/21 16:00 Interval history: Date of service: 02/05/2021 David Mcfarland is a 70-year-old male with history of CKD, hypertension, type 2 diabetes mellitus, and recurrent DVT on chronic anticoagulation who is seen in follow-up for COVID 19 pneumonia. He is feeling a little bit better today. He has been eating more and tolerating his diet. He still has poor sense of taste. He has been drinking fluids. No shortness of breath. He was able to tolerate some activity today. He is coughing frequently with clear sputum production. No abdominal pain, nausea, vomiting, fever, or chills. No dizziness or lightheadedness. He is now showing a hospital room with his who is also ill. Review of Systems Review of Systems: All systems reviewed & are unremarkable except as noted in HPI and below Exam Narrative: Mr. Mcfarland is a well-nourished, well-appearing 70-year-old male who is lying supine in bed. He appears comfortable and is in NARD. Neuro: awake, alert and oriented x4, speech clear, no focal neuro deficits noted HEENMT: normocephalic, atraumatic, EOMI, sclerae anicteric, moist oral mucos
[2021-02-06 16:52] LABS: Glucose Point of Care 139 mg/dl (65-105)
[2021-02-06 20:00] VITALS: BP 133/76; PULSE 115; RESP 18; TEMP 36.7; O2SAT 98
[2021-02-06 20:10] VITALS: PULSE 114; RESP 16
[2021-02-06] MEDS: TERAZOSIN HCL 5 MG CAPSULE PO (20:47)
[2021-02-07] VITALS (8 sets, daily range): BP systolic 131–154; BP diastolic 65–80; PULSE 64–119; RESP 16–20; TEMP 36.3–37.4; O2SAT 95–98
[2021-02-07 04:33] LABS: Glucose Point of Care 159 mg/dl (65-105)
[2021-02-07 06:21] LABS: Hematocrit 35.6 % (42.0-52.0); Mean Corpuscular HGB Conc 30.9 g/dl (32-36); Mean Corpuscular Hemoglobin 29.8 pg (26-34); Mean Corpuscular Volume 96.5 fl (80-100); Mean Platelet Volume 10.2 fl (7.4-10.4); Platelet Count Result 263 k/mm3 (150-375); Red Blood Count 3.69 M/mm3 (4.6-6.20); Red Cell Distribution Width 12.8 % (11.5-14.5); White Blood Count 5.6 K/mm3 (4.5-10.0)
[2021-02-07 06:32] LABS: Prothrombin Time 45.2 Seconds (11.1-14.7)
[2021-02-07 06:34] LABS: Chloride 111 mmol/L (98-107)
[2021-02-07 06:35] LABS: Alanine Aminotransferase 47 U/L (4-50); Albumin Level 2.7 g/dL (3.5-5.1); Alkaline Phosphatase 391 U/L (38-126); Anion Gap 5 mmol/L (8-16); Aspartate Amino Transferase 48 U/L (17-59); Bilirubin,Total 0.7 mg/dL (0.2-1.3); Blood Urea Nitrogen 43 mg/dL (9-20); CRP 1.7 mg/dL (<1.0); Calcium 8.1 mg/dL (8.4-10.2); Carbon Dioxide 24 mmol/L (22-30); Estimated CRCL calculation 23 ml/min; Estimated Glomerular Filt Rate 17; Glucose 111 mg/dL (65-110); Potassium 4.5 mmol/L (3.4-5.0); Sodium 140 mmol/L (137-145)
[2021-02-07 07:00] LABS: INR 5.1
[2021-02-07 08:11] LABS: Glucose Point of Care 112 mg/dl (65-105)
[2021-02-07] MEDS: ALBUTEROL SULFATE (*SP) AEROSOL 1 PUFF 4 PUFF INHALATION ×4 (08:51→21:41)
[2021-02-07] MEDS: CYANOCOBALAMIN 1,000 MCG TABLET 1000 MCG PO (09:01)
[2021-02-07] MEDS: ASPIRIN 81 MG CHEWABLE TABLET PO (09:01)
[2021-02-07] MEDS: THERAPEUTIC MULTIVITAMINS/MINERALS TAB (*BKC) 1 TABLET PO (09:01)
[2021-02-07] MEDS: guaiFENesin 12 HR 600 MG TABCR PO ×2 (09:01→22:36)
[2021-02-07] MEDS: FAMOTIDINE 20 MG/2 ML VIAL IV PUSH ×2 (09:01→22:37)
[2021-02-07] MEDS: calcitrioL 0.25 MCG CAPSULE PO (09:01)
[2021-02-07 10:54] LABS: Hemoglobin A1C 6.1 % (<5.7)
[2021-02-07 12:18] LABS: Glucose Point of Care 134 mg/dl (65-105)
--- NOTE | 2021-02-07 14:57 | PM.IMPN ---
Progress Note: A&P Assessment and Plan (1) Pneumonia due to COVID-19 virus: Code(s): U07.1 - COVID-19; J12.82 - Pneumonia due to coronavirus disease 2019 Status: Acute Assessment and Plan: Patient tested positive on 01/27/21. CXR showed patchy airspace opacities in the mid and lower lung zones, consistent with COVID pneumonia. No need for dexamethasone as he is not requiring supplemental O2. Not a candidate for remdesivir given his kidney disease Maintaining adequate oxygenation on room air. Supplemental O2 as needed with goal saturation 90% or above Supportive care to include bronchodilators, expectorants, antipyretics, incentive spirometry Trend acute phase reactants Received Jonathan&Jonathan vaccine in September. (2) Acute on chronic kidney failure: Code(s): N17.9 - Acute kidney failure, unspecified; N18.9 - Chronic kidney disease, unspecified Status: Acute Assessment and Plan: Baseline creatinine is 3.0. Creatinine elevated at 4.7 upon presentation, likely prerenal in origin given nausea, vomiting, diarrhea, and poor p.o. intake. Renal function has improved with IV fluids down to 3.5 today. IV fluids discontinued to avoid volume overload. Patient is tolerating p.o. intake. Monitor renal function closely. Daily BMP. Consider renal ultrasound if no further improvement (3) Hypertension: Code(s): I10 - Essential (primary) hypertension Status: Acute Assessment and Plan: Blood pressure reviewed and has been well controlled. Last BP 136/65 Losartan on hold given MARISOL Monitor BP trends and adjust medications as needed (4) Supratherapeutic INR: Code(s): R79.1 - Abnormal coagulation profile Status: Acute Assessment and Plan: INR 7.8 at admisison. Last tested 01/22/2021 and was within normal limits. He had been on levaquin at home per PCP which is the likely cause. Reports compliance with his warfarin with no extra doses taken. Hold warfarin No need for acute reversal at this point as no evidence of bleeding. Monitor INR daily. Improved to 5.1 today. (5) Type 2 diabetes mellitus: Code(s): E11.9 - Type 2 diabetes mellitus without complications Status: Inactive Assessment and Plan: Hgb A1c 6.1%. Blood sugars reviewed and generally well controlled. He is not on medications. Diet controlled. Accu-Cheks, sliding scale insulin, hypoglycemic protocol (6) Recurrent deep vein thrombosis (DVT): Code(s): I82.409 - Acute embolism and thrombosis of unspecified deep veins of unspecified lower extremity Status: Acute Assessment and Plan: Maintained on warfarin which is on hold at present. See above. Subjective Date/time seen: 02/07/21 14:45 Interval history: Date of service: 02/07/2021 Mr. Mcfarland is a 70yo M with history of CKD, hypertension, type 2 DM, and recurrent DVT on chronic anticoagulation with warfarin who is seen in follow up for COVID-19 pneumonia and acute on chronic renal failure. He reports feeling okay today. Overall he is feeling fatigued mostly with walking in the room. Shortness of breath is improved. He feels his appetite is improving some and he is eating better. Still with productive cough of clear sputum. Denies chest pain, nausea, vomiting, abdominal pain, fever or chills. He is now sharing a hospital room with his who is also ill with COVID Review of Systems Review of Systems: All systems reviewed & are unremarkable except as noted in HPI and below Exam Narrative: Mr. Mcfarland is a well-nourished, well-appearing 70-year-old male who is lying semi-recumbent in bed. He appears comfortable and is in NARD. Neuro: awake, alert and oriented x4, speech clear, no focal neuro deficits noted HEENMT: normocephalic, atraumatic, EOMI, sclerae anicteric, moist oral mucosa Neck: supple, no lymphadenopathy Respiratory: Diminished breath sounds bilaterally withou
[2021-02-07 17:44] LABS: Glucose Point of Care 139 mg/dl (65-105)
[2021-02-07] MEDS: TERAZOSIN HCL 5 MG CAPSULE PO (22:36)
[2021-02-08] VITALS (7 sets, daily range): BP systolic 135–155; BP diastolic 60–69; PULSE 58–115; RESP 16–20; TEMP 36.2–36.7; O2SAT 96–100
[2021-02-08 06:34] LABS: Hematocrit 33.2 % (42.0-52.0); Hemoglobin 10.4 g/dL (14.0-18.0)
[2021-02-08 06:47] LABS: INR 3.4; Prothrombin Time 33.1 Seconds (11.1-14.7)
[2021-02-08 06:48] LABS: Alanine Aminotransferase 41 U/L (4-50); Albumin Level 2.6 g/dL (3.5-5.1); Alkaline Phosphatase 334 U/L (38-126); Anion Gap 5 mmol/L (8-16); Aspartate Amino Transferase 44 U/L (17-59); Bilirubin,Total 0.6 mg/dL (0.2-1.3); Blood Urea Nitrogen 42 mg/dL (9-20); Calcium 8.1 mg/dL (8.4-10.2); Carbon Dioxide 25 mmol/L (22-30); Chloride 106 mmol/L (98-107); Estimated CRCL calculation 25 ml/min; Estimated Glomerular Filt Rate 19; Glucose 103 mg/dL (65-110); Potassium 4.4 mmol/L (3.4-5.0); Sodium 136 mmol/L (137-145)
[2021-02-08] MEDS: calcitrioL 0.25 MCG CAPSULE PO (08:44)
[2021-02-08] MEDS: guaiFENesin 12 HR 600 MG TABCR PO ×2 (08:44→21:44)
[2021-02-08] MEDS: THERAPEUTIC MULTIVITAMINS/MINERALS TAB (*BKC) 1 TABLET PO (08:44)
[2021-02-08] MEDS: FAMOTIDINE 20 MG/2 ML VIAL IV PUSH ×2 (08:45→21:43)
[2021-02-08] MEDS: CYANOCOBALAMIN 1,000 MCG TABLET 1000 MCG PO (08:45)
[2021-02-08] MEDS: ASPIRIN 81 MG CHEWABLE TABLET PO (08:45)
[2021-02-08 08:49] LABS: Glucose Point of Care 100 mg/dl (65-105)
[2021-02-08] MEDS: ALBUTEROL SULFATE (*SP) AEROSOL 1 PUFF 4 PUFF INHALATION ×3 (08:54→21:32)
[2021-02-08 13:13] LABS: Glucose Point of Care 102 mg/dl (65-105)
--- NOTE | 2021-02-08 15:04 | PM.IMPN ---
Progress Note: A&P Assessment and Plan (1) Pneumonia due to COVID-19 virus: Code(s): U07.1 - COVID-19; J12.82 - Pneumonia due to coronavirus disease 2018 Status: Acute Assessment and Plan: Patient tested positive on 01/27/21. CXR showed patchy airspace opacities in the mid and lower lung zones, consistent with COVID pneumonia. No need for dexamethasone as he is not requiring supplemental O2. Not a candidate for remdesivir given his kidney disease Maintaining adequate oxygenation on room air. Supplemental O2 as needed with goal saturation 90% or above Supportive care to include bronchodilators, expectorants, antipyretics, incentive spirometry Received [employer] vaccine in September. (2) Acute on chronic kidney failure: Code(s): N17.9 - Acute kidney failure, unspecified; N18.9 - Chronic kidney disease, unspecified Status: Acute Assessment and Plan: Baseline creatinine is 3.0. Creatinine elevated at 4.7 upon presentation, likely prerenal in origin given nausea, vomiting, diarrhea, and poor p.o. intake. Renal function has improved with IV fluids down to 3.2 today. Monitor renal function closely. Daily BMP. (3) Hypertension: Code(s): I10 - Essential (primary) hypertension Status: Acute Assessment and Plan: Blood pressure reviewed and has been well controlled. Last BP 139/64 Losartan on hold given MARISOL Monitor BP trends and adjust medications as needed (4) Supratherapeutic INR: Code(s): R79.1 - Abnormal coagulation profile Status: Acute Assessment and Plan: INR 7.8 at admisison. Last tested 01/22/2021 and was within normal limits. He had been on levaquin at home per PCP which is the likely cause. Reports compliance with his warfarin with no extra doses taken. Hold warfarin No need for acute reversal at this point as no evidence of bleeding. Monitor INR daily. Improved to 5.3.4 today. (5) Type 2 diabetes mellitus: Code(s): E11.9 - Type 2 diabetes mellitus without complications Status: Inactive Assessment and Plan: Hgb A1c 6.1%. Blood sugars reviewed and are well controlled. He is not on medications. Diet controlled. Accu-Cheks, sliding scale insulin, hypoglycemic protocol (6) Recurrent deep vein thrombosis (DVT): Code(s): I82.409 - Acute embolism and thrombosis of unspecified deep veins of unspecified lower extremity Status: Acute Assessment and Plan: Maintained on warfarin which is on hold at present. See above. Additional Plan Hopeful discharge tomorrow if continued improvement Subjective Date/time seen: 02/08/21 15:04 Interval history: Date of service: 02/05/2021 David Mcfarland is a 70-year-old male with history of CKD, hypertension, type 2 diabetes mellitus, and recurrent DVT on chronic anticoagulation who is seen in follow-up for COVID 19 pneumonia. He is feeling well today. His appetite has improved. His sense of taste is getting better. Still with anosmia. No shortness of breath, cough, or chest pain. He has been getting up and walking around with therapy and tolerating this very well. He is feeling like he is regaining his strength back. No nausea, vomiting, fever, chills, dizziness, lightheadedness. Spoke with his daughter via phone to provide updates at the patient's request. He continues to share a hospital room with his who is also ill with COVID. Review of Systems Review of Systems: All systems reviewed & are unremarkable except as noted in HPI and below Exam Narrative: Mr. Mcfarland is a well-nourished, well-appearing 70-year-old male who is lying supine in bed. He appears comfortable and is in NARD. Neuro: awake, alert and oriented x4, speech clear, no focal neuro deficits noted HEENMT: normocephalic, atraumatic, EOMI, sclerae anicteric, moist oral mucosa Neck: supple, no lymphadenopathy Respiratory: Clear to auscultation bilaterally. Nonl
--- NOTE | 2021-02-08 16:35 | PCRCNOTE ---
Window of time for administration has passed. See next scheduled administration.
[2021-02-08 17:22] LABS: Glucose Point of Care 186 mg/dl (65-105)
[2021-02-08] MEDS: TERAZOSIN HCL 5 MG CAPSULE PO (21:44)
[2021-02-09] VITALS: BP 133/60; PULSE 65; RESP 18; TEMP 36; O2SAT 97
[2021-02-09 03:02] LABS: Glucose Point of Care 114 mg/dl (65-105)
[2021-02-09 04:00] VITALS: BP 144/66; PULSE 63; RESP 18; TEMP 36.4; O2SAT 95
[2021-02-09 07:09] LABS: Hemoglobin 10.5 g/dL (14.0-18.0); Mean Corpuscular HGB Conc 30.9 g/dl (32-36); Mean Corpuscular Hemoglobin 29.7 pg (26-34); Mean Platelet Volume 10.3 fl (7.4-10.4); Platelet Count Result 279 k/mm3 (150-375); Red Blood Count 3.54 M/mm3 (4.6-6.20); White Blood Count 6.6 K/mm3 (4.5-10.0)
[2021-02-09 07:27] LABS: Anion Gap 6 mmol/L (8-16); Blood Urea Nitrogen 41 mg/dL (9-20); Calcium 8.1 mg/dL (8.4-10.2); Carbon Dioxide 24 mmol/L (22-30); Chloride 106 mmol/L (98-107); Estimated CRCL calculation 25 ml/min; Estimated Glomerular Filt Rate 19; Glucose 93 mg/dL (65-110); Potassium 4.5 mmol/L (3.4-5.0); Sodium 136 mmol/L (137-145)
[2021-02-09 07:38] LABS: Prothrombin Time 22.2 Seconds (11.1-14.7)
[2021-02-09 08:00] VITALS: BP 129/68; PULSE 78; RESP 20; TEMP 36.2; O2SAT 96
[2021-02-09 08:58] LABS: Glucose Point of Care 106 mg/dl (65-105)
[2021-02-09] MEDS: THERAPEUTIC MULTIVITAMINS/MINERALS TAB (*BKC) 1 TABLET PO (10:32)
[2021-02-09] MEDS: ASPIRIN 81 MG CHEWABLE TABLET PO (10:32)
[2021-02-09] MEDS: calcitrioL 0.25 MCG CAPSULE PO (10:32)
[2021-02-09] MEDS: FAMOTIDINE 20 MG/2 ML VIAL IV PUSH (10:32)
[2021-02-09] MEDS: CYANOCOBALAMIN 1,000 MCG TABLET 1000 MCG PO (10:33)
[2021-02-09] MEDS: guaiFENesin 12 HR 600 MG TABCR PO (10:33)
--- NOTE | 2021-02-09 11:08 | PCRCNOTE ---
Window of time for administration has passed. See next scheduled administration.
[2021-02-09] MEDS: ALBUTEROL SULFATE (*SP) AEROSOL 1 PUFF 4 PUFF INHALATION ×2 (11:09→17:01)
[2021-02-09 12:16] LABS: Glucose Point of Care 246 mg/dl (65-105)
[2021-02-09 13:05] LABS: Glucose Point of Care 136 mg/dl (65-105)
--- NOTE | 2021-02-09 15:35 | PCPTNOTE ---
Attempted to see patient for PT, patient declined due to anticipated discharge.
--- NOTE | 2021-02-09 16:14 | PM.DS ---
DS: Admitting Diagnosis Admitting Diagnosis Shortness of breath DS: Discharge Diagnosis Discharge Diagnosis (1) Pneumonia due to COVID-19 virus: Code(s): U07.1 - COVID-19; J12.82 - Pneumonia due to coronavirus disease 2019 Status: Acute Assessment and Plan: Patient tested positive on 01/27/21 CXR showed patchy airspace opacities in the mid and lower lung zones, consistent with COVID pneumonia No need for dexamethasone as he is not requiring supplemental O2 Not a candidate for remdesivir given his kidney disease On RA (2) Acute on chronic kidney failure: Code(s): N17.9 - Acute kidney failure, unspecified; N18.9 - Chronic kidney disease, unspecified Status: Acute Assessment and Plan: Baseline creatinine is 3.0. Creatinine elevated at 4.7 upon presentation, close to baseline-->3.2 today likely prerenal in origin given nausea, vomiting, diarrhea, and poor p.o. intake (3) Hypertension: Code(s): I10 - Essential (primary) hypertension Status: Acute Assessment and Plan: Stable Resume home Losartan (4) Supratherapeutic INR: Code(s): R79.1 - Abnormal coagulation profile Status: Acute Assessment and Plan: Resolved, 2.0 today INR 7.8 at admission. Last tested 01/22/2021 and was within normal limits He had been on Levaquin at home per PCP which is the likely cause Reported compliance with his warfarin with no extra doses taken warfarin was held (5) Type 2 diabetes mellitus: Code(s): E11.9 - Type 2 diabetes mellitus without complications Status: Inactive Assessment and Plan: Hgb A1c 6.1% Diet controlled (6) Recurrent deep vein thrombosis (DVT): Code(s): I82.409 - Acute embolism and thrombosis of unspecified deep veins of unspecified lower extremity Status: Acute Assessment and Plan: On warfarin DS: Summary Hospital Course Hospital Course: David Mcfarland is a 70-year-old manwith past medical history significant for dyslipidemia, chronic kidney disease, recurrent DVT on anticoagulation, congestive heart failure, dyslipidemia, atrial fibrillation anticoagulated and rate controlled. He presented to the emergency room due to generalized weakness,malaise, and shortness of breath. He tested positive for COVID on 01/27/2021. He reported associated nausea, vomiting , diarrhea and weakness. He denied any fevers chills or rigors. Preliminary workup was significant for chest x-ray with infiltrates BMP with elevated creatinine 4.7 elevated liver enzymes at AST 207 ALT 121 alk phos 800 LDH of 1023. He did receive Jonathan & Jonathan vaccin in September. He was managed conservatively with bronchodilators, expectorants, antipyretics, incentive spirometry and did not require supplemental O2. He was not a candidate for remdesivir due CKD. He is stable and ready for discharge. He has been advised to follow up with his PCP in 2 weeks. Time Spent with Patient Time attestation: Total time spent providing and/or coordinating discharge services: 50 Exam Const: General: no acute distress, alert and awake Orientation/consciousness: patient oriented x3 HENMT: Head: normocephalic and atraumatic Ears: hearing grossly normal bilaterally and external ears normal Face and sinus: face symmetric Mouth: Yes Normal oral and palatal mucosa present Eyes: Pupils: Equal, round and reactive pupils present EOM: EOMs intact bilaterally Neck: Neck: full ROM, trachea midline and no JVD Thyroid: thyroid normal Chest: Chest palpation & inspection: normal inspection of the chest Resp: Effort & Inspection: normal respiratory effort Auscultation: clear to auscultation bilaterally Cardio: Jugular venous distension: no JVD Rate: regular rate Rhythm: regular rhythm Heart sounds: S1 normal heart sound present and S2 normal heart sound present GI: Inspection: normal to inspection GI Palp: Yes Soft to palpation Percussion: Yes normal to percussion A
== END 2021-02-09 17:30 | disposition home health service (06) | DRG 177 ==
LOC: ANHED 20:57 → ANH3MEDSUR 02-05 06:54
PROVIDERS: Physician Assistant; Admitting Provider Internal Medicine; Emergency Provider Emergency Medicine; PCP Family Medicine; Visit Provider Physician Assistant
DX: U07.1 COVID-19 (principal); J12.82 Pneumonia due to coronavirus disease 2019; N17.9 Acute kidney failure, unspecified; I82.409 Acute embolism and thrombosis of unspecified deep veins of unspecified lower extremity; I12.9 Hypertensive chronic kidney disease with stage 1 through stage 4 chronic kidney disease, or unspecified chronic kidney disease; E11.22 Type 2 diabetes mellitus with diabetic chronic kidney disease; N18.9 Chronic kidney disease, unspecified; E78.5 Hyperlipidemia, unspecified; R79.1 Abnormal coagulation profile; Z79.01 Long term (current) use of anticoagulants
CPT/HCPCS: 36415; 36600; 71045; 80048; 80053; 82805; 82948; 83036; 83615; 84443; 85014; 85018; 85025; 85027; 85380; 85610; 86140; 94640; 96361; 96374; 97110; 97161; 97165; 97535; 99285; A9270; J2405; J7120

== ENCOUNTER → 2021-10-03 10:38 | Outpatient (CLI) | payer MEDICARE, SELFPAY ==
--- NOTE | ~2021-10-03 | XR_ITS ---
EXAMINATION: XR shoulder LT min 2V DATE: 10/03/2021 11:58 INDICATION: Left shoulder pain. TECHNIQUE: 4 views of left shoulder were obtained. COMPARISON: Chest 2 views 01/22/2021 FINDINGS: Bone alignment is normal. There is chronic expansion of middle third of left clavicle, like ly an old healed fracture. There is mild osteoarthritis of glenohumeral joint and moderate osteoarthr itis of acromioclavicular joint. IMPRESSION: 1. Polyarticular osteoarthritis. Reviewed, dictated and finalized at location A.
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
== END ==
PROVIDERS: PCP Family Medicine; Visit Provider Family Medicine
DX: M25.512 Pain in left shoulder (principal); I70.90 Unspecified atherosclerosis; M51.9 Unspecified thoracic, thoracolumbar and lumbosacral intervertebral disc disorder; M19.012 Primary osteoarthritis, left shoulder
CPT/HCPCS: 72072; 73030

== ENCOUNTER → 2023-02-01 09:37 | Outpatient (CLI) | payer MEDICARE, SELFPAY ==
--- NOTE | ~2023-02-01 | XR_ITS ---
EXAMINATION: XR knee RT 3V DATE: 02/01/2023 10:01 INDICATION: Right knee pain. TECHNIQUE: 3 views of right knee were obtained. COMPARISON: None. FINDINGS: There is varus angulation at the knee. No fracture. There is severe tricompartmental osteoa rthritis. There is a moderate-sized knee joint effusion. IMPRESSION: 1. Severe right knee osteoarthritis. 2. Moderate-sized right knee joint effusion. Reviewed, dictated and finalized at location B.
== END ==
PROVIDERS: PCP Family Medicine; Visit Provider Family Medicine
DX: M17.11 Unilateral primary osteoarthritis, right knee (principal); M25.461 Effusion, right knee
CPT/HCPCS: 73562

== ENCOUNTER 2023-10-10 14:27 | Outpatient (CLI) | payer MEDICARE, SELFPAY ==
--- NOTE | ~2023-10-10 | XR_ITS ---
XR chest 2V 10/10/2023 14:39 Indication: End-stage renal disease Procedure: PA and lateral views of the chest Comparison: Chest x-ray report dated 02/04/2021 Findings: Cardiomegaly. There is pulmonary vascular congestion. No pleural effusion or pneumothorax. Calcified granuloma right apex. Impression: 1: Cardiomegaly with pulmonary vascular congestion. Reviewed, dictated and finalized at location A. Impression: 1: Cardiomegaly with pulmonary vascular congestion.
== END 2023-10-10 14:28 ==
PROVIDERS: PCP Family Medicine; Visit Provider Internal Medicine Nephrology
DX: N18.6 End stage renal disease (principal); Z01.818 Encounter for other preprocedural examination; I51.7 Cardiomegaly
CPT/HCPCS: 71046